=== PATIENT | male | born 2000 | race African-American/Black ===

== ENCOUNTER 2025-03-03 12:41 | Emergency (ER) | payer MEDICAID, OTHER ==
[~2025-03-03] VITALS: Ht 162.6 cm; Wt 130.3 kg
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
[2025-03-03 16:27] VITALS: BP 145/89; PULSE 60; RESP 18; TEMP 98.4; O2SAT 99
[2025-03-03] MEDS ORDERED: CYCL-839 PO (16:35)
[2025-03-03] MEDS ORDERED: NAPR-957 PO (16:35)
== END 2025-03-03 16:47 | disposition home or self-care (01) ==
LOC: ER 12:41
DX: S50.812A Abrasion of left forearm, initial encounter (principal); M54.50 Low back pain, unspecified; M54.2 Cervicalgia; M25.511 Pain in right shoulder; M25.512 Pain in left shoulder; V89.2XXA Person injured in unspecified motor-vehicle accident, traffic, initial encounter; Y93.I9 Activity, other involving external motion; Y92.488 Other paved roadways as the place of occurrence of the external cause; Y99.8 Other external cause status